=== PATIENT | male | born 1960 | race African-American/Black ===

== ENCOUNTER 2021-08-20 18:41 | Inpatient (IN) | payer OTHER ==
[2021-08-20 20:12] VITALS: BMI 22.5
[2021-08-20] MEDS ORDERED: NALOXONE (NARCAN) HCL 4 MG/0.1 ML SPRAY NS PRN (21:21)
[2021-08-20] MEDS ORDERED: guaiFENesin 200 MG/10 ML 10 ML UNIT-DOSE CUPS PO PRN (21:21)
[2021-08-20] MEDS ORDERED: IBUPROFEN 400 MG TABLET (FP) PO PRN (21:21)
[2021-08-20] MEDS ORDERED: ONDANSETRON *ODT* 4 MG TABLET SL PRN (21:21)
[2021-08-20] MEDS ORDERED: MAG HYDROX/AL HYDROX/SIMETH 30 ML UNIT-DOSE CUP PO PRN (21:21)
[2021-08-20] MEDS ORDERED: MAGNESIUM CITRATE 300 ML BOTTLE PO PRN (21:21)
[2021-08-20] MEDS ORDERED: MAGNESIUM HYDROX 2400MG/30ML ORAL SUSPENSION 30 ML CUP PO PRN (21:21)
[2021-08-20] MEDS ORDERED: P-EPHED 60MG/TRIPROLIDI 2.5MG TABLET PO PRN (21:21)
[2021-08-20] MEDS ORDERED: NALOXONE HCL 0.4 MG/ML VIAL IM PRN (21:21)
[2021-08-20] MEDS ORDERED: DICYCLOMINE HCL 10 MG CAPSULE PO PRN (21:21)
[2021-08-20] MEDS ORDERED: BISMUTH SUBSALICYLATE 524 MG/30 ML PO PRN (21:21)
[2021-08-20] MEDS ORDERED: chlordiazePOXIDE HCL 25 MG CAPSULE PO PRN (21:21)
[2021-08-20] MEDS ORDERED: ACETAMINOPHEN 325 MG TABLET (FP) PO PRN (21:21)
[2021-08-20] MEDS ORDERED: cloNIDine HCL 0.1 MG TABLET PO PRN (21:24)
[2021-08-20] MEDS ORDERED: MELATONIN 5 MG TABLETS PO SCH (22:00)
[2021-08-21] MEDS: chlordiazePOXIDE HCL 25 MG CAPSULE PO SCH ×5 (00:01→22:40)
[2021-08-21] MEDS: NICOTINE POLACRILEX 2 MG GUM BUC PRN (00:05)
[2021-08-21] MEDS: THIAMINE HCL 100 MG TABLET (FP) PO SCH ×2 (00:05→22:40)
[2021-08-21] MEDS: ACETAMINOPHEN 325 MG TABLET (FP) PO PRN ×2 (05:23→10:58)
[2021-08-21 10:31] LABS: HEMATOCRIT 37.3 % (35.4-49); HEMOGLOBIN 12.7 GM/dL (11.7-16.9); MCH 33.3 pg (25.7-33.7); MCHC 34.1 g/dl (32.0-35.9); MEAN CELL VOLUME 97.7 fl (80-96); PLATELET COUNT 321 10^3/uL (134-434); RBC 3.82 M/mm3 (4.00-5.60); RDW 15.1 % (11.9-15.9); WHITE BLOOD COUNT 6.4 K/mm3 (4.0-10.0)
[2021-08-21 10:44] LABS: ALBUMIN 3.1 g/dl (3.4-5.0); CALCIUM 8.5 mg/dL (8.5-10.1)
[2021-08-21 10:45] LABS: BLOOD UREA NITROGEN 11.2 mg/dL (7-18)
[2021-08-21 10:47] LABS: CREATININE 0.8 mg/dL (0.55-1.3)
[2021-08-21 10:49] LABS: BILIRUBIN,TOTAL 0.5 mg/dL (0.2-1); TOT PROT 6.2 g/dl (6.4-8.2)
[2021-08-21] MEDS: PRENATAL VITAMINS W/ FOLIC ACID TABLET (FP) PO SCH (10:54)
[2021-08-21] MEDS: METHOCARBAMOL 500 MG TABLET PO PRN (10:58)
[2021-08-21] MEDS: NICOTINE 21 MG/24 HOURS TOPICAL PATCH TD SCH (11:45)
[2021-08-21] MEDS: MENTHOL/PHENOL 1 EACH UD MM PRN ×2 (18:02→22:44)
[2021-08-21] MEDS: SUVOREXANT 10 MG TABLET PO PRN (22:44)
[2021-08-22] MEDS: ACETAMINOPHEN 325 MG TABLET (FP) PO PRN ×3 (02:49→17:58)
[2021-08-22] MEDS: chlordiazePOXIDE HCL 25 MG CAPSULE PO SCH ×4 (05:45→22:51)
[2021-08-22] MEDS: hydrOXYzine PAMOATE 25 MG CAPSULE (FP) PO PRN ×2 (05:46→10:46)
[2021-08-22] MEDS: MENTHOL/PHENOL 1 EACH UD MM PRN ×2 (05:47→10:49)
[2021-08-22] MEDS: PRENATAL VITAMINS W/ FOLIC ACID TABLET (FP) PO SCH (10:46)
[2021-08-22] MEDS: NICOTINE 21 MG/24 HOURS TOPICAL PATCH TD SCH (10:46)
[2021-08-22] MEDS: METHOCARBAMOL 500 MG TABLET PO PRN (10:47)
[2021-08-22] MEDS: THIAMINE HCL 100 MG TABLET (FP) PO SCH (22:51)
[2021-08-22] MEDS: SUVOREXANT 10 MG TABLET PO PRN (22:54)
[2021-08-23] MEDS ORDERED: chlordiazePOXIDE HCL 10 MG CAPSULE PO PRN
[2021-08-23] MEDS: chlordiazePOXIDE HCL 10 MG CAPSULE PO SCH ×4 (06:09→22:35)
[2021-08-23] MEDS: ACETAMINOPHEN 325 MG TABLET (FP) PO PRN ×3 (06:10→18:58)
[2021-08-23] MEDS: PRENATAL VITAMINS W/ FOLIC ACID TABLET (FP) PO SCH (10:08)
[2021-08-23] MEDS: METHOCARBAMOL 500 MG TABLET PO PRN (10:08)
[2021-08-23] MEDS: NICOTINE 21 MG/24 HOURS TOPICAL PATCH TD SCH (10:10)
[2021-08-23] MEDS: MENTHOL/PHENOL 1 EACH UD MM PRN ×2 (10:10→22:37)
[2021-08-23] MEDS: LIDOCAINE 5% TOPICAL PATCH TP SCH (13:19)
[2021-08-23] MEDS: NICOTINE POLACRILEX 2 MG GUM BUC PRN ×2 (15:23→19:02)
[2021-08-23] MEDS: hydrOXYzine PAMOATE 25 MG CAPSULE (FP) PO PRN (18:57)
[2021-08-23] MEDS ORDERED: LIDOCAINE PATCH REMOVAL MC SCH (22:00)
[2021-08-23] MEDS: SUVOREXANT 10 MG TABLET PO PRN (22:34)
[2021-08-23] MEDS: THIAMINE HCL 100 MG TABLET (FP) PO SCH (22:37)
[2021-08-24] MEDS ORDERED: chlordiazePOXIDE HCL 10 MG CAPSULE PO SCH (05:00)
[2021-08-24] MEDS: ACETAMINOPHEN 325 MG TABLET (FP) PO PRN (05:34)
[2021-08-24 09:47] VITALS: PULSE 109; TEMP 98
[2021-08-24] MEDS: LIDOCAINE 5% TOPICAL PATCH TP SCH (10:19)
[2021-08-24] MEDS: PRENATAL VITAMINS W/ FOLIC ACID TABLET (FP) PO SCH (10:20)
[2021-08-24] MEDS: NICOTINE 21 MG/24 HOURS TOPICAL PATCH TD SCH (10:20)
[2021-08-24] MEDS: hydrOXYzine PAMOATE 25 MG CAPSULE (FP) PO PRN (10:20)
[2021-08-24] MEDS: METHOCARBAMOL 500 MG TABLET PO PRN (10:20)
[2021-08-24 12:26] VITALS: BP 150/80
[2021-08-24] MEDS ORDERED: SUVOREXANT 15 MG TABLET PO PRN (22:00)
[2021-08-24] MEDS ORDERED: SUVOREXANT 10 MG TABLET PO PRN ×2 (22:00)
[2021-08-25] MEDS ORDERED: chlordiazePOXIDE HCL 10 MG CAPSULE PO ONE (05:00)
== END 2021-08-24 12:16 | disposition other institution (70) | DRG 897 ==
LOC: YASAS 18:41 → Y6N 22:59
PROVIDERS: ADMIT Allergy & Immunology; ATTEND Allergy & Immunology
PROC: HZ2ZZZZ Detoxification Services for Substance Abuse Treatment (ICD-10-PCS; principal; 2021-08-20)
DX: F10.230 Alcohol dependence with withdrawal, uncomplicated (principal); F14.20 Cocaine dependence, uncomplicated; F19.282 Other psychoactive substance dependence with psychoactive substance-induced sleep disorder; F12.10 Cannabis abuse, uncomplicated; F17.213 Nicotine dependence, cigarettes, with withdrawal; F19.24 Other psychoactive substance dependence with psychoactive substance-induced mood disorder; M54.50 Low back pain, unspecified; G89.29 Other chronic pain; R74.8 Abnormal levels of other serum enzymes; Z56.0 Unemployment, unspecified; Z59.00 Homelessness unspecified; Z91.19 Patient's noncompliance with other medical treatment and regimen
CPT/HCPCS: 36415; 80053; 85027; 86780; C9803; U0003; U0005

== ENCOUNTER 2022-05-12 12:10 | Inpatient (IN) | payer OTHER ==
[2022-05-12 13:37] VITALS: BMI 28.7
[2022-05-12] MEDS ORDERED: MAGNESIUM CITRATE 300 ML BOTTLE PO PRN (13:56)
[2022-05-12] MEDS ORDERED: BISMUTH SUBSALICYLATE 262 MG/15 ML BTL PO PRN (13:56)
[2022-05-12] MEDS ORDERED: methaDONE HCL 10 MG TABLET (FOR DETOX USE ONLY) PO ONE (13:56)
[2022-05-12] MEDS ORDERED: ACETAMINOPHEN 325 MG TABLET (FP) PO PRN ×2 (13:56)
[2022-05-12] MEDS ORDERED: LOPERAMIDE HCL 2 MG CAPSULE PO PRN (13:56)
[2022-05-12] MEDS ORDERED: NALOXONE HCL (KLOXXADO) 8 MG SPRAY NS PRN (13:56)
[2022-05-12] MEDS ORDERED: DICYCLOMINE HCL 10 MG CAPSULE PO PRN (13:56)
[2022-05-12] MEDS ORDERED: NICOTINE 10 MG CARTRIDGE (INHALER) IH PRN (13:56)
[2022-05-12] MEDS ORDERED: MAGNESIUM HYDROX 2400MG/30ML ORAL SUSPENSION 30 ML CUP PO PRN (13:56)
[2022-05-12] MEDS ORDERED: cloNIDine HCL 0.1 MG TABLET PO PRN (13:56)
[2022-05-12] MEDS ORDERED: IBUPROFEN 400 MG TABLET (FP) PO PRN (13:56)
[2022-05-12] MEDS ORDERED: ONDANSETRON *ODT* 4 MG TABLET SL PRN (13:56)
[2022-05-12] MEDS ORDERED: chlordiazePOXIDE HCL 25 MG CAPSULE PO PRN (13:56)
[2022-05-12] MEDS ORDERED: hydrOXYzine PAMOATE 25 MG CAPSULE (FP) PO ONE (14:28)
[2022-05-12] MEDS ORDERED: methaDONE HCL 10 MG TABLET (FOR DETOX USE ONLY) ONE (14:28)
[2022-05-12] MEDS: hydrOXYzine PAMOATE 25 MG CAPSULE (FP) PO PRN ×2 (14:34→18:10)
[2022-05-12] MEDS: NICOTINE 14 MG/24 HOURS TOPICAL PATCH TD SCH (15:10)
[2022-05-12] MEDS: PRENATAL VITAMINS W/ FOLIC ACID TABLET (FP) PO SCH (15:11)
[2022-05-12] MEDS ORDERED: NICOTINE POLACRILEX 2 MG GUM BUC PRN (17:31)
[2022-05-12] MEDS: chlordiazePOXIDE HCL 25 MG CAPSULE PO SCH ×2 (18:10→22:24)
[2022-05-12] MEDS: METHOCARBAMOL 500 MG TABLET PO PRN (18:10)
[2022-05-12] MEDS ORDERED: MELATONIN 5 MG TABLETS PO SCH (22:00)
[2022-05-12] MEDS: BENZOCAINE/MENTHOL (CHLORASEPTIC ) LOZENGE MM PRN (22:23)
[2022-05-12] MEDS: THIAMINE HCL 100 MG TABLET (FP) PO SCH (22:24)
[2022-05-13] MEDS: chlordiazePOXIDE HCL 25 MG CAPSULE PO SCH ×4 (05:10→22:50)
[2022-05-13] MEDS: PRENATAL VITAMINS W/ FOLIC ACID TABLET (FP) PO SCH (10:46)
[2022-05-13] MEDS: NICOTINE 14 MG/24 HOURS TOPICAL PATCH TD SCH (10:46)
[2022-05-13 14:17] LABS: HEMOGLOBIN 13.9 GM/dL (11.7-16.9); MCH 33.7 pg (25.7-33.7); MCHC 33.8 g/dl (32.0-35.9); MEAN CELL VOLUME 99.6 fl (80-96); MEAN PLT VOLUME 7.4 fl (7.5-11.1); PLATELET COUNT 282 10^3/uL (134-434); RBC 4.12 M/mm3 (4.00-5.60); RDW 14.3 % (11.9-15.9); WHITE BLOOD COUNT 6.5 K/mm3 (4.0-10.0)
[2022-05-13 16:19] LABS: CALCIUM 8.5 mg/dL (8.5-10.1)
[2022-05-13 16:20] LABS: ALBUMIN 3.5 g/dl (3.4-5.0); BLOOD UREA NITROGEN 24.2 mg/dL (7-18)
[2022-05-13 16:23] LABS: CREATININE 1.2 mg/dL (0.55-1.3)
[2022-05-13 16:24] LABS: BILIRUBIN,TOTAL 0.4 mg/dL (0.2-1); TOT PROT 6.4 g/dl (6.4-8.2)
[2022-05-13] MEDS: hydrOXYzine PAMOATE 25 MG CAPSULE (FP) PO PRN ×2 (18:08→22:50)
[2022-05-13] MEDS: MAG HYDROX/AL HYDROX/SIMETH 30 ML UNIT-DOSE CUP PO PRN (20:04)
[2022-05-13] MEDS: THIAMINE HCL 100 MG TABLET (FP) PO SCH (22:50)
[2022-05-13] MEDS: SUVOREXANT 10 MG TABLET PO PRN (22:50)
[2022-05-13] MEDS: METHOCARBAMOL 500 MG TABLET PO PRN (22:50)
[2022-05-14] MEDS: chlordiazePOXIDE HCL 25 MG CAPSULE PO SCH ×4 (05:39→22:25)
[2022-05-14] MEDS ORDERED: methaDONE HCL 10 MG TABLET (FOR DETOX USE ONLY) PO ONE (10:00)
[2022-05-14] MEDS: PRENATAL VITAMINS W/ FOLIC ACID TABLET (FP) PO SCH (10:13)
[2022-05-14] MEDS: NICOTINE 14 MG/24 HOURS TOPICAL PATCH TD SCH (10:16)
[2022-05-14] MEDS: BENZOCAINE/MENTHOL (CHLORASEPTIC ) LOZENGE MM PRN ×3 (13:52→22:32)
[2022-05-14] MEDS: LACTULOSE 20 GM/30 ML UDC (FOR ORAL USE ONLY) PO SCH ×3 (13:52→22:32)
[2022-05-14] MEDS: MAG HYDROX/AL HYDROX/SIMETH 30 ML UNIT-DOSE CUP PO PRN (20:41)
[2022-05-14] MEDS: THIAMINE HCL 100 MG TABLET (FP) PO SCH (22:24)
[2022-05-14] MEDS: SUVOREXANT 10 MG TABLET PO PRN (22:24)
[2022-05-14] MEDS: IBUPROFEN 600 MG TABLET (FP) PO PRN (23:34)
[2022-05-14] MEDS: METHOCARBAMOL 500 MG TABLET PO PRN (23:35)
[2022-05-15] MEDS ORDERED: chlordiazePOXIDE HCL 10 MG CAPSULE PO PRN
[2022-05-15] MEDS: chlordiazePOXIDE HCL 10 MG CAPSULE PO SCH ×4 (05:28→22:30)
[2022-05-15] MEDS: BENZOCAINE/MENTHOL (CHLORASEPTIC ) LOZENGE MM PRN ×3 (05:34→22:32)
[2022-05-15] MEDS: LACTULOSE 20 GM/30 ML UDC (FOR ORAL USE ONLY) PO SCH ×4 (10:32→22:29)
[2022-05-15] MEDS: PRENATAL VITAMINS W/ FOLIC ACID TABLET (FP) PO SCH (10:41)
[2022-05-15] MEDS: NICOTINE 14 MG/24 HOURS TOPICAL PATCH TD SCH (10:46)
[2022-05-15] MEDS: MAG HYDROX/AL HYDROX/SIMETH 30 ML UNIT-DOSE CUP PO PRN (17:28)
[2022-05-15] MEDS: SUVOREXANT 10 MG TABLET PO PRN (22:29)
[2022-05-15] MEDS: IBUPROFEN 600 MG TABLET (FP) PO PRN (22:29)
[2022-05-15] MEDS: THIAMINE HCL 100 MG TABLET (FP) PO SCH (22:30)
[2022-05-16] MEDS: chlordiazePOXIDE HCL 10 MG CAPSULE PO SCH ×2 (05:56→18:11)
[2022-05-16] MEDS ORDERED: methaDONE HCL 10 MG TABLET (FOR DETOX USE ONLY) PO ONE (10:00)
[2022-05-16] MEDS: NICOTINE 14 MG/24 HOURS TOPICAL PATCH TD SCH (10:54)
[2022-05-16] MEDS: PRENATAL VITAMINS W/ FOLIC ACID TABLET (FP) PO SCH (10:54)
[2022-05-16] MEDS: LACTULOSE 20 GM/30 ML UDC (FOR ORAL USE ONLY) PO SCH ×4 (10:54→23:00)
[2022-05-16] MEDS: BENZOCAINE/MENTHOL (CHLORASEPTIC ) LOZENGE MM PRN (10:57)
[2022-05-16] MEDS ORDERED: SUVOREXANT 10 MG TABLET PO PRN (22:00)
[2022-05-16] MEDS: THIAMINE HCL 100 MG TABLET (FP) PO SCH (23:00)
[2022-05-17] MEDS ORDERED: chlordiazePOXIDE HCL 10 MG CAPSULE PO ONE (05:00)
[2022-05-17 09:03] VITALS: BP 144/89; PULSE 74; RESP 20; TEMP 97.1
== END 2022-05-17 10:38 | disposition home or self-care (01) | DRG 897 ==
LOC: YASAS 12:10 → Y3N 14:32
PROVIDERS: ADMIT Allergy & Immunology; ATTEND Surgery
PROC: HZ2ZZZZ Detoxification Services for Substance Abuse Treatment (ICD-10-PCS; principal; 2022-05-12)
DX: F11.23 Opioid dependence with withdrawal (principal); F14.20 Cocaine dependence, uncomplicated; E72.20 Disorder of urea cycle metabolism, unspecified; F10.230 Alcohol dependence with withdrawal, uncomplicated; F12.20 Cannabis dependence, uncomplicated; F17.213 Nicotine dependence, cigarettes, with withdrawal; M54.50 Low back pain, unspecified; G89.29 Other chronic pain
CPT/HCPCS: 36415; 80053; 82140; 85027; 86780; C9803-CS; Q0162; U0003; U0005

== ENCOUNTER 2022-10-08 13:24 | Inpatient (IN) | payer OTHER ==
[2022-10-08 14:01] VITALS: BMI 22.5
[2022-10-08] MEDS ORDERED: LOPERAMIDE HCL 2 MG CAPSULE PO PRN (15:11)
[2022-10-08] MEDS ORDERED: MAGNESIUM HYDROX 2400MG/30ML ORAL SUSPENSION 30 ML CUP PO PRN (15:11)
[2022-10-08] MEDS ORDERED: NALOXONE HCL 0.4 MG/ML VIAL IM PRN (15:11)
[2022-10-08] MEDS ORDERED: NICOTINE 10 MG CARTRIDGE (INHALER) IH PRN (15:11)
[2022-10-08] MEDS ORDERED: ONDANSETRON *ODT* 4 MG TABLET SL PRN (15:11)
[2022-10-08] MEDS ORDERED: BISMUTH SUBSALICYLATE 262 MG/15 ML BTL PO PRN (15:11)
[2022-10-08] MEDS ORDERED: ACETAMINOPHEN 325 MG TABLET (FP) PO PRN ×2 (15:11)
[2022-10-08] MEDS ORDERED: DICYCLOMINE HCL 10 MG CAPSULE PO PRN (15:11)
[2022-10-08] MEDS ORDERED: NALOXONE HCL (KLOXXADO) 8 MG SPRAY NS PRN (15:11)
[2022-10-08] MEDS ORDERED: POLYETHYLENE GLYCOL (HEALTHYLAX) 3350 17 GM PACKET PO PRN (15:11)
[2022-10-08] MEDS ORDERED: BENZONATATE 200 MG CAPSULE PO PRN (15:11)
[2022-10-08] MEDS ORDERED: MAG HYDROX/AL HYDROX/SIMETH 30 ML UNIT-DOSE CUP PO PRN (15:11)
[2022-10-08] MEDS ORDERED: IBUPROFEN 600 MG TABLET (FP) PO ONE (15:43)
[2022-10-08] MEDS: IBUPROFEN 600 MG TABLET (FP) PO PRN (15:50)
[2022-10-08] MEDS: hydrOXYzine PAMOATE 25 MG CAPSULE (FP) PO PRN (16:51)
[2022-10-08] MEDS: BENZOCAINE/MENTHOL (CHLORASEPTIC ) LOZENGE MM PRN (16:52)
[2022-10-08] MEDS: THIAMINE HCL 100 MG TABLET (FP) PO SCH (22:32)
[2022-10-08] MEDS: MELATONIN 5 MG TABLETS PO SCH (22:32)
[2022-10-09] MEDS: METHOCARBAMOL 500 MG TABLET PO PRN ×2 (10:11→22:13)
[2022-10-09] MEDS: PRENATAL VITAMINS W/ FOLIC ACID TABLET (FP) PO SCH (10:11)
[2022-10-09] MEDS: guaiFENesin 600 MG TABLET.ER (FP) PO PRN (10:11)
[2022-10-09] MEDS: IBUPROFEN 600 MG TABLET (FP) PO PRN ×2 (10:11→17:39)
[2022-10-09] MEDS ORDERED: methaDONE HCL 10 MG TABLET (FOR DETOX USE ONLY) PO ONE (10:13)
[2022-10-09] MEDS ORDERED: cloNIDine HCL 0.1 MG TABLET PO PRN (10:13)
[2022-10-09] MEDS: diazePAM 5 MG TABLET PO SCH ×3 (10:51→22:15)
[2022-10-09 10:52] LABS: ALBUMIN 2.9 g/dl (3.4-5.0); CALCIUM 8.5 mg/dL (8.5-10.1)
[2022-10-09 10:53] LABS: BLOOD UREA NITROGEN 17.9 mg/dL (7-18)
[2022-10-09 10:57] LABS: BILIRUBIN,TOTAL 0.4 mg/dL (0.2-1)
[2022-10-09 11:02] LABS: HEMATOCRIT 38.1 % (35.4-49); HEMOGLOBIN 13.3 GM/dL (11.7-16.9); MCH 33.5 pg (25.7-33.7); MCHC 34.9 g/dl (32.0-35.9); MEAN CELL VOLUME 96.1 fl (80-96); MEAN PLT VOLUME 7.4 fl (7.5-11.1); PLATELET COUNT 254 10^3/uL (134-434); RBC 3.96 M/mm3 (4.00-5.60); WHITE BLOOD COUNT 7.8 K/mm3 (4.0-10.0)
[2022-10-09] MEDS: TAMSULOSIN HCL 0.4 MG CAP PO SCH (12:39)
[2022-10-09] MEDS: THIAMINE HCL 100 MG TABLET (FP) PO SCH (22:14)
[2022-10-09] MEDS: IBUPROFEN 400 MG TABLET (FP) PO PRN (22:14)
[2022-10-09] MEDS: MELATONIN 5 MG TABLETS PO SCH (22:15)
[2022-10-09] MEDS: QUEtiapine FUMARATE 50 MG TABLET PO SCH (22:16)
[2022-10-09] MEDS: BENZOCAINE/MENTHOL (CHLORASEPTIC ) LOZENGE MM PRN (22:19)
[2022-10-10] MEDS: diazePAM 5 MG TABLET PO SCH ×3 (05:22→22:34)
[2022-10-10] MEDS: IBUPROFEN 600 MG TABLET (FP) PO PRN (05:26)
[2022-10-10] MEDS: LACTULOSE 20 GM/30 ML UDC (FOR ORAL USE ONLY) PO SCH ×4 (10:07→22:33)
[2022-10-10] MEDS: TAMSULOSIN HCL 0.4 MG CAP PO SCH (10:07)
[2022-10-10] MEDS: PRENATAL VITAMINS W/ FOLIC ACID TABLET (FP) PO SCH (10:07)
[2022-10-10] MEDS: guaiFENesin 600 MG TABLET.ER (FP) PO PRN (13:12)
[2022-10-10] MEDS: diazePAM 5 MG TABLET PO PRN (17:35)
[2022-10-10] MEDS: IBUPROFEN 400 MG TABLET (FP) PO PRN (17:35)
[2022-10-10] MEDS ORDERED: QUEtiapine FUMARATE 25 MG TABLET ONE (22:02)
[2022-10-10] MEDS: MELATONIN 5 MG TABLETS PO SCH (22:34)
[2022-10-10] MEDS: THIAMINE HCL 100 MG TABLET (FP) PO SCH (22:34)
[2022-10-10] MEDS: QUEtiapine FUMARATE 50 MG TABLET PO SCH (22:34)
[2022-10-10] MEDS: METHOCARBAMOL 500 MG TABLET PO PRN (22:36)
[2022-10-11] MEDS: METHOCARBAMOL 500 MG TABLET PO PRN (06:02)
[2022-10-11] MEDS: diazePAM 5 MG TABLET PO SCH ×2 (06:02→17:54)
[2022-10-11] MEDS ORDERED: methaDONE HCL 10 MG TABLET (FOR DETOX USE ONLY) PO ONE (10:00)
[2022-10-11] MEDS: TAMSULOSIN HCL 0.4 MG CAP PO SCH (10:25)
[2022-10-11] MEDS: PRENATAL VITAMINS W/ FOLIC ACID TABLET (FP) PO SCH (10:25)
[2022-10-11] MEDS: IBUPROFEN 400 MG TABLET (FP) PO PRN (10:25)
[2022-10-11] MEDS: LACTULOSE 20 GM/30 ML UDC (FOR ORAL USE ONLY) PO SCH ×4 (10:25→22:53)
[2022-10-11] MEDS: diazePAM 5 MG TABLET PO PRN (10:26)
[2022-10-11] MEDS: BENZOCAINE/MENTHOL (CHLORASEPTIC ) LOZENGE MM PRN (10:31)
[2022-10-11] MEDS ORDERED: AMMONIUM LACTATE 12% LOTION 225 GM BOTTLE TP PRN (18:16)
[2022-10-11] MEDS: TOLNAFTATE 1% CREAM 15 GM TUBE TP SCH ×2 (19:20→23:35)
[2022-10-11] MEDS: THIAMINE HCL 100 MG TABLET (FP) PO SCH (22:52)
[2022-10-11] MEDS: QUEtiapine FUMARATE 50 MG TABLET PO SCH (22:52)
[2022-10-11] MEDS: MELATONIN 5 MG TABLETS PO SCH (22:54)
[2022-10-12] MEDS ORDERED: diazePAM 5 MG TABLET PO ONE (06:00)
[2022-10-12] MEDS: PRENATAL VITAMINS W/ FOLIC ACID TABLET (FP) PO SCH (10:15)
[2022-10-12] MEDS: TAMSULOSIN HCL 0.4 MG CAP PO SCH (10:16)
[2022-10-12] MEDS: LACTULOSE 20 GM/30 ML UDC (FOR ORAL USE ONLY) PO SCH ×4 (10:16→21:34)
[2022-10-12] MEDS: TOLNAFTATE 1% CREAM 15 GM TUBE TP SCH ×2 (10:17→21:34)
[2022-10-12] MEDS: IBUPROFEN 600 MG TABLET (FP) PO PRN ×2 (15:32→22:26)
[2022-10-12] MEDS: IBUPROFEN 400 MG TABLET (FP) PO PRN (17:25)
[2022-10-12 21:34] VITALS: RESP 18
[2022-10-12] MEDS: QUEtiapine FUMARATE 50 MG TABLET PO SCH (21:34)
[2022-10-12] MEDS: MELATONIN 5 MG TABLETS PO SCH (21:34)
[2022-10-12] MEDS: THIAMINE HCL 100 MG TABLET (FP) PO SCH (21:34)
[2022-10-12] MEDS: METHOCARBAMOL 500 MG TABLET PO PRN (22:26)
[2022-10-13] MEDS: hydrOXYzine PAMOATE 25 MG CAPSULE (FP) PO PRN ×2 (05:36→22:32)
[2022-10-13] MEDS: METHOCARBAMOL 500 MG TABLET PO PRN (05:36)
[2022-10-13] MEDS ORDERED: methaDONE HCL 10 MG TABLET (FOR DETOX USE ONLY) PO ONE (10:00)
[2022-10-13] MEDS: IBUPROFEN 600 MG TABLET (FP) PO PRN ×2 (10:48→17:32)
[2022-10-13] MEDS: TAMSULOSIN HCL 0.4 MG CAP PO SCH (10:48)
[2022-10-13] MEDS: TOLNAFTATE 1% CREAM 15 GM TUBE TP SCH ×2 (10:49→22:35)
[2022-10-13] MEDS: PRENATAL VITAMINS W/ FOLIC ACID TABLET (FP) PO SCH (10:50)
[2022-10-13] MEDS: LACTULOSE 20 GM/30 ML UDC (FOR ORAL USE ONLY) PO SCH ×4 (11:05→22:32)
[2022-10-13] MEDS: QUEtiapine FUMARATE 50 MG TABLET PO SCH (22:32)
[2022-10-13] MEDS: MELATONIN 5 MG TABLETS PO SCH (22:32)
[2022-10-13] MEDS: THIAMINE HCL 100 MG TABLET (FP) PO SCH (22:33)
[2022-10-14] MEDS: hydrOXYzine PAMOATE 25 MG CAPSULE (FP) PO PRN (06:05)
[2022-10-14] MEDS: TOLNAFTATE 1% CREAM 15 GM TUBE TP SCH (10:45)
[2022-10-14] MEDS: PRENATAL VITAMINS W/ FOLIC ACID TABLET (FP) PO SCH (10:45)
[2022-10-14] MEDS: TAMSULOSIN HCL 0.4 MG CAP PO SCH (10:45)
[2022-10-14] MEDS: LACTULOSE 20 GM/30 ML UDC (FOR ORAL USE ONLY) PO SCH ×2 (10:45→14:38)
[2022-10-14] MEDS: METHOCARBAMOL 500 MG TABLET PO PRN (10:49)
[2022-10-14 13:20] VITALS: BP 122/75; PULSE 81; TEMP 97.2
== END 2022-10-14 14:15 | disposition home or self-care (01) | DRG 897 ==
LOC: YASAS 13:24 → Y6N 15:21
PROVIDERS: ADMIT Allergy & Immunology; ATTEND Surgery
PROC: HZ2ZZZZ Detoxification Services for Substance Abuse Treatment (ICD-10-PCS; principal; 2022-10-08)
DX: F11.23 Opioid dependence with withdrawal (principal); F14.20 Cocaine dependence, uncomplicated; E72.20 Disorder of urea cycle metabolism, unspecified; F10.230 Alcohol dependence with withdrawal, uncomplicated; F17.210 Nicotine dependence, cigarettes, uncomplicated; F41.9 Anxiety disorder, unspecified; N40.0 Benign prostatic hyperplasia without lower urinary tract symptoms; M77.8 Other enthesopathies, not elsewhere classified; Z56.0 Unemployment, unspecified; Z59.00 Homelessness unspecified
CPT/HCPCS: 36415; 73630-TC-RT-FY; 80053; 82140; 85027; 86780; 93005; 93010; C9803-CS; Q0162; U0003; U0005

== ENCOUNTER 2022-10-10 14:00 | Emergency (ER) | payer OTHER ==
[2022-10-10 14:18] VITALS: RESP 18; BMI 22.5
[2022-10-10] MEDS ORDERED: IBUPROFEN 400 MG TABLET (FP) PO ONE (15:45)
[2022-10-10 16:06] VITALS: BP 117/72; PULSE 76; TEMP 97.8
== END 2022-10-10 16:01 | disposition home or self-care (01) ==
LOC: JER 14:00
DX: M25.721 Osteophyte, right elbow (principal); Y08.02XA Assault by strike by baseball bat, initial encounter
CPT/HCPCS: 73070-TC-RT-FY; 99283-25